=== PATIENT | female | born 1995 | race Caucasian/White ===

== ENCOUNTER 2020-08-10 20:48 | Emergency (ER) | payer MEDICAID ==
[~2020-08-10] VITALS: Ht 157.5 cm; Wt 49.9 kg
[2020-08-10] MEDS ORDERED: OLANZAPINE 10 MG VIAL IM ONE (21:27)
[2020-08-10] MEDS ORDERED: ACETAMINOPHEN ES 500 MG TABLET ONE (21:30)
[2020-08-10 21:32] LABS: BASOPHILS # (AUTO) 0.1 /CMM (0.0-0.2); BASOPHILS % (AUTO) 1.1 % (0.0-2.0); EOSINOPHILS % (AUTO) 0.9 % (0.0-6.0); HEMATOCRIT 29 % (33-45); HEMOGLOBIN 9.5 g/dL (11.5-14.8); LYMPHOCYTES # (AUTO) 0.9 /CMM (0.8-4.8); LYMPHOCYTES % (AUTO) 16.1 % (20.0-44.0); MEAN CORPUSCULAR HGB CONC 34 g/dl (31.0-36.0); MEAN CORPUSCULAR VOLUME 80 fL (82-100); MONOCYTES # (AUTO) 1.1 /CMM (0.1-1.30); MONOCYTES % (AUTO) 19.5 % (2.0-12.0); NEUTROPHILS # (AUTO) 3.7 /CMM (1.8-8.9); NEUTROPHILS % (AUTO) 62.4 % (43.0-81.0); PLATELET COUNT (AUTO) 189 /CMM (150-450); RED BLOOD CELL COUNT(AUTO) 3.58 MIL/uL (4.0-5.2); WHITE BLOOD COUNT (AUTO) 5.9 K/uL (4.3-11.0)
[2020-08-10 21:36] LABS: APPEARANCE,URINE Clear (CLEAR); BILIRUBIN,URINE SMALL (NEGATIVE); BLOOD, URINE Trace-lysed Ery/uL (NEGATIVE); COLOR,URINE Yellow (YELLOW); KETONES,URINE Trace (NEGATIVE); LEUKOCYTE ESTERASE ,URINE Small (NEGATIVE); NITRITE, URINE Negative (NEGATIVE); PH,URINE 7.5 (5.0-8.0); PROTEIN,URINE 100 mg/dl (NEGATIVE); UGLUCOSE Negative (NEGATIVE)
[2020-08-10 21:38] LABS: BACTERIA,URINE None seen /HPF (None Seen); SQUAMOUS EPITHELIAL CELL,UR Few /HPF (None Seen)
[2020-08-10 21:40] LABS: CALCIUM, SERUM 7.5 mg/dL (8.5-10.1); CARBON DIOXIDE 26 mmol/L (21-32); CHLORIDE 105 mmol/L (98-107); CREATININE 0.9 mg/dL (0.6-1.3); GLUCOSE 102 mg/dL (74-106); POTASSIUM 3.9 mmol/L (3.5-5.1); SODIUM SERUM 136 mmol/L (136-145); UREA NITROGEN, BLOOD 9 mg/dL (7-18)
[2020-08-10 21:41] LABS: CALCIUM OXALATE CRYSTALS,UR Many /HPF (None Seen)
[2020-08-10] MEDS: ACETAMINOPHEN 325 MG TABLET PO ONE (21:41)
[2020-08-10] MEDS: OLANZAPINE 10 MG VIAL IM ONE (21:41)
--- NOTE | 2020-08-10 21:42 | NUR ---
PT CAME TO THE ER C/O L HAND PAIN AND SI W/ A PLAN TO JUMP INFRONT OF A CAR AND GET NAKED. PT ADMITS TO METH USE TODAY. PT AAOX4, RESPIRATIONS EVEN AND UNLABORED ON RA W/ NAD NOTED. PT CHANGED INTO GOWN, BELONGINGS PLACED TO LOCKER, SUICIDE PRECAUTIONS IMPLEMENTED. SITTER AT BEDSIDE FOR SAFETY
[2020-08-10 21:44] LABS: ACETAMINOPHEN 0 ug/ml (10-30); ALANINE AMINOTRANSFERASE 14 U/L (12-78); ALCOHOL, BLOOD < 3 mg/dL (0-0); ALKALINE PHOSPHATASE 129 U/L (46-116); ASPARTATE AMINOTRANSFERASE 22 U/L (15-37); BILIRUBIN,DIRECT 0.1 mg/dL (0.0-0.2); BILIRUBIN,TOTAL 0.4 mg/dL (0.2-1.0); SALICYLATE 0.4 mg/dL (2.8-20.0); TOTAL PROTEIN, SERUM 7.9 g/dL (6.4-8.2)
[2020-08-10] MEDS: IV NS 0.9% 1,000 ML BAG IV ONE (21:57)
[2020-08-10] MEDS: NITROFURANTOIN/NITROFURAN MAC 100 MG CAPSULE PO ONE (22:30)
[2020-08-10] MEDS ORDERED: NITROFURANTOIN/NITROFURAN MAC 100 MG CAPSULE ONE (23:38)
--- NOTE | 2020-08-11 00:09 | NUR ---
PT RESTING COMFORTABLY IN BED. VSS. NO ACUTE DISTRESS NOTED. SITTER AT BEDSIDE FOR SAFETY.
[2020-08-11 00:19] LABS: LYMPHOCYTES % (MANUAL) 12 % (16-48); MONOCYTES % (MANUAL) 14 % (0-11.0); NEUTROPHILS % (MANUAL) 74 (42-76)
--- NOTE | 2020-08-11 02:45 | NUR ---
COVID SWAB COLLECTED AND SENT TO LAB
--- NOTE | 2020-08-11 03:51 | NUR ---
[facility] ETA [id number]
--- NOTE | 2020-08-11 04:06 | NUR ---
PT ACCEPTED TO [facility] BY DR ASKEW. UNIT 1. # FOR REPORT [phone]
[2020-08-11] MEDS: ACETAMINOPHEN ES 500 MG TABLET PO ONE (04:37)
--- NOTE | 2020-08-11 04:44 | NUR ---
REPORT GIVEN TO ANA PAULA ENCISO FOR SHAUN Addendum: 08/11/20 at 0444 by LATASHA REPORT GIVEN TO ANA PAULA ENCISO FOR SHAUN [facility] ROBERT GALVAN
--- NOTE | 2020-08-11 04:59 | NUR ---
PT PROVIDED W/ FOOD.
[2020-08-11] MEDS ORDERED: ACETAMINOPHEN ES 500 MG TABLET ONE (05:10)
--- NOTE | 2020-08-11 06:38 | NUR ---
PT RESTING COMFORTABLY IN BED. VSS. NO ACUTE DISTRESS NOTED. SITTER AT BEDSIDE FOR SAFETY. WILL CONTINUE TO MONITOR THE PT
[2020-08-11 07:04] VITALS: BP 126/54
--- NOTE | 2020-08-11 07:19 | NUR ---
REPORT GIVEN TO [facility] UNIT 35, PT STABLE FOR TRANSFER
== END 2020-08-11 07:21 ==
LOC: ER 20:50
DX: R45.851 Suicidal ideations (principal); F19.10 Other psychoactive substance abuse, uncomplicated; D64.9 Anemia, unspecified; E83.51 Hypocalcemia; E88.09 Other disorders of plasma-protein metabolism, not elsewhere classified; Z82.49 Family history of ischemic heart disease and other diseases of the circulatory system; M79.89 Other specified soft tissue disorders; Z87.11 Personal history of peptic ulcer disease; M79.642 Pain in left hand; Z20.828 Contact with and (suspected) exposure to other viral communicable diseases
CPT/HCPCS: 29125; 36415; 73130; 80048; 80076; 80305; 80307; 80329; 81001; 84703; 85007; 85025; 87426; 96360; 96372; 99285; C9803; G0480; J3490; J7030; 81000-TC